=== PATIENT | female | born 1995 | race Two or more races ===

== ENCOUNTER 2023-03-16 10:02 | Emergency (ER) | payer OTHER ==
[~2023-03-16] VITALS: Ht 162.6 cm; Wt 56.2 kg
[2023-03-16] MEDS ORDERED: PEPCID AC20 MG PO (10:57)
[2023-03-16] MEDS ORDERED: AMOX-CLAV 875-1 EACH PO (10:57)
== END 2023-03-16 11:07 | disposition home or self-care (01) ==
LOC: ER 10:03
DX: H66.90 Otitis media, unspecified, unspecified ear (principal); Z91.013 Allergy to seafood

== ENCOUNTER 2023-09-28 12:50 | Emergency (ER) | payer OTHER ==
[~2023-09-28] VITALS: Ht 162.6 cm; Wt 59.0 kg
[~2023-09-28 12:50] MED LIST: AMOX-CLAV 875-1 EACH PO; PEPCID AC20 MG PO
[2023-09-28] MEDS ORDERED: KETOROLAC TROMETHAMINE 60 MG VIAL IM STA (15:21)
== END 2023-09-28 16:11 | disposition home or self-care (01) ==
LOC: ER 12:50
DX: U07.1 COVID-19 (principal); Z91.013 Allergy to seafood; R53.81 Other malaise

== ENCOUNTER 2024-03-21 14:07 | Emergency (ER) | payer OTHER ==
[~2024-03-21] VITALS: Ht 162.6 cm; Wt 59.0 kg
[2024-03-21 14:33] VITALS: BP 116/65; O2SAT 96
[2024-03-21] MEDS ORDERED: ONDANSETRON HCL 2 MG/ML VIAL IV ONE (15:30)
[2024-03-21] MEDS ORDERED: FAMOTIDINE/PF 20 MG/2 ML VIAL IV ONE (15:30)
[2024-03-21] MEDS ORDERED: 0.9 % SODIUM CHLORIDE 1,000 ML IV ONE (15:30)
[2024-03-21] MEDS ORDERED: GUAIFENESIN/DEXTROMETHORPHAN 10ML BLIST.PACK PO ONE ×2 (15:30→15:34)
[2024-03-21] MEDS ORDERED: ONDANSETRON HCL 2 MG/ML VIAL ONE (15:33)
[2024-03-21] MEDS ORDERED: FAMOTIDINE/PF 20 MG/2 ML VIAL ONE (15:34)
[2024-03-21 16:13] LABS: HEMATOCRIT 35.7 % (36.0-45.00); HEMOGLOBIN 11.6 g/dL (12.0-15.00); MEAN CELL VOLUME 77.2 fL (80.00-100.00); MEAN CORPUSCULAR HEMOGLOBIN 25.2 pg (27.00-32.0); MEAN CORPUSCULAR HGB CONC 32.6 g/dl (32.0-36.0); PLATELET COUNT 245 K/uL (150-450); RED BLOOD COUNT 4.62 M/uL (4.00-6.00); RED CELL DISTRIBUTION WIDTH 16.1 % (11.5-14.5)
[2024-03-21] MEDS ORDERED: OSELTAMIVIR PHOSPHATE 75 MG CAPSULE PO ONE ×2 (16:45→16:48)
[2024-03-21 16:47] LABS: ALBUMIN 3.7 gm/dL (3.4-5.0); BILIRUBIN TOTAL 0.13 mg/dL (0.3-1.2); CALCIUM 8.7 mg/dL (8.5-10.1); CREATININE SERUM 0.73 mg/dL (0.55-1.02); GFR 96.37; GLOBULINA 5.3 G/DL (2.4-3.5); POTASSIUM 3.56 mEq/L (3.5-5.1)
[2024-03-21] MEDS ORDERED: TUSSIN DM LIQU118 ML PO (17:05)
[2024-03-21] MEDS ORDERED: INTESTINEX680 M1 PO (17:05)
[2024-03-21] MEDS ORDERED: ONDANSETRON HCL4 MG PO (17:05)
[2024-03-21] MEDS ORDERED: OSEL75CA PO (17:05)
== END 2024-03-21 17:47 ==
LOC: ER 14:10
PROVIDERS: General Practice
DX: J10.1 Influenza due to other identified influenza virus with other respiratory manifestations (principal); R11.10 Vomiting, unspecified; Z20.822 Contact with and (suspected) exposure to COVID-19; Z91.013 Allergy to seafood

== ENCOUNTER → 2025-02-03 | Emergency (ER) | payer OTHER ==
[~2025-02-03] VITALS: Ht 162.6 cm; Wt 68.0 kg
[~2025-02-03] MED LIST changes: +INTESTINEX680 M1 PO; +ONDANSETRON HCL4 MG PO; +OSEL75CA PO; +TUSSIN DM LIQU118 ML PO
== END | disposition left against medical advice (07) ==
LOC: ER 01:34
DX: Z53.21 Procedure and treatment not carried out due to patient leaving prior to being seen by health care provider (principal)